=== PATIENT | female | born 1950 | race Caucasian/White ===

== ENCOUNTER 2017-03-08 15:46 | Emergency (ER) | payer MEDICARE ==
[2017-03-08] MEDS: LABETALOL 20 MG/4 ML DISP.SYRIN. IVP (16:11)
[2017-03-08 16:12] LABS: ADD MAN DIFF? NO
[2017-03-08 16:14] LABS: BASO # 0.1 x10^3/uL (0.0-0.2); BASO % 1 % (0-3); EOS % 3 % (0-3); HEMATOCRIT 39.9 % (36.0-47.0); HEMOGLOBIN 13.4 g/dL (12.0-15.5); LYMPH # 3.5 x10^3/uL (1.0-4.8); LYMPH % 34 % (24-48); MEAN CORPUSCULAR HEMOGLOBIN 30 pg (25-35); MEAN CORPUSCULAR HGB CONC 34 g/dL (31-37); MEAN CORPUSCULAR VOLUME 88 fL (79-100); MONO % 7 % (0-9); NEUT % 56 % (31-73); PLATELET COUNT 329 x10^3/uL (140-400); RED BLOOD COUNT 4.54 x10^6/uL (3.50-5.40); RED CELL DISTRIBUTION WIDTH 13.4 % (11.5-14.5); WHITE BLOOD COUNT 10.3 x10^3/uL (4.0-11.0)
[2017-03-08 16:29] LABS: ANION GAP 13 (6-14); BLOOD UREA NITROGEN 23 mg/dL (7-20); BUN/CREATININE RATIO 21 (6-20); CALCIUM 9.1 mg/dL (8.5-10.1); CARBON DIOXIDE 24 mmol/L (21-32); CHLORIDE 104 mmol/L (98-107); CREATININE 1.1 mg/dL (0.6-1.0); GLUCOSE 100 mg/dL (70-99); SODIUM 141 mmol/L (136-145)
[2017-03-08 16:36] LABS: ALBUMIN 3.8 g/dL (3.4-5.0); ALBUMIN/GLOBULIN RATIO 0.9 (1.0-1.7); ALK PHOS 108 U/L (46-116); ALT (SGPT) 25 U/L (14-59); AST (SGOT) 22 U/L (15-37); TOTAL BILIRUBIN 0.3 mg/dL (0.2-1.0); TOTAL PROTEIN 7.9 g/dL (6.4-8.2)
[2017-03-08 16:38] LABS: TROPONINI < 0.017 ng/mL (0.000-0.055)
== END 2017-03-08 17:02 | disposition home or self-care (01) ==
LOC: ER 15:46
DX: I16.0 Hypertensive urgency (principal); R06.00 Dyspnea, unspecified; R07.89 Other chest pain; I11.0 Hypertensive heart disease with heart failure; I50.30 Unspecified diastolic (congestive) heart failure; E78.00 Pure hypercholesterolemia, unspecified; F41.9 Anxiety disorder, unspecified; F32.9 Major depressive disorder, single episode, unspecified; J44.9 Chronic obstructive pulmonary disease, unspecified; Z88.1 Allergy status to other antibiotic agents
CPT/HCPCS: 36415; 71010; 80053; 84484; 85025; 93005; 96374; 99285-25; J3490

== ENCOUNTER → 2018-04-01 | Outpatient (CLI) | payer MEDICARE ==
[2017-03-08 16:45] VITALS: BP 161/69
[~2018-04-01] MED LIST: ALBU0.63 NEB; ALBU8.5H6 INH; AMOX1TAB61 PO; ASPI-612 PO; ATOR10TA60 PO; BUDE0.25 NEB; CLON0.5T PO; CLON1TAB11 PO; DOCU-109 PO; FENT1PAT21 TD; FEXO180T81 PO; FORM20VI IH; IBUP-1060 PO; IBUP200T77 PO; LAMO200T3 PO; LISI-130 PO; LISI10TA2 PO; METO-239 PO; METO25TA4 PO; MUPI1OIN NS; OXYC1TAB19 PO; ROFL500T7 PO
--- NOTE | 2018-04-01 16:22 | KCIC ---
Indications: Left foot and ankle pain for several months with swelling. Three-view left foot study: No acute fracture or dislocation or osteolytic process is seen. No plantar spur of the calcaneus is seen. Three-view left ankle study: No acute fracture or dislocation or osteolytic process is evident. The mortise ankle joint is intact. No significant mortise ankle joint effusion is seen. IMPRESSION: No acute fracture. 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 Electronically signed by: Francisco Olsmtead MD (04/01/2018 4:18 PM) [facility]
== END | disposition home or self-care (01) ==
LOC: KCIC 10:43
PROVIDERS: ATTEND Family Medicine
DX: M19.072 Primary osteoarthritis, left ankle and foot (principal)
CPT/HCPCS: 73610; 73630

== ENCOUNTER → 2018-12-16 | Outpatient (CLI) | payer MEDICARE ==
[2017-03-08 16:45] VITALS: BP 161/69
[~2018-12-16] MED LIST changes: -CLON1TAB11 PO; +CLONAZEPAM1 MG PO; +REGADENOSON 0.4 MG/5 ML DISP.SYRIN. IV ONE
--- NOTE | 2018-12-16 10:47 | CARD ---
MR#: [id number] Date of Study: 12/16/2018 Ordering Physician: FELIX CELAYA, Referring Physician: FELIX CELAYA, Tech: [facility] APPROVED REPORT EXAM: Two-dimensional and M-mode echocardiogram with Doppler and color Doppler. Other Information Quality : Good INDICATION Dyspnea 2D DIMENSIONS RVDd2.8 (2.9-3.5cm)Left Atrium(2D)3.5 (1.6-4.0cm) IVSd1.1 (0.7-1.1cm)Aortic Root(2D)2.8 (2.0-3.7cm) LVDd4.4 (3.9-5.9cm)LVOT Diameter2.0 (1.8-2.4cm) PWd0.9 (0.7-1.1cm)LVDs2.8 (2.5-4.0cm) FS (%) 30.0 %SV59.7 ml LVEF(%)60.0 (>50%) Aortic Valve AoV Peak Ortiz.161.9cm/sAoV VTI26.1cm AO Peak GR.10.5mmHgLVOT Peak Ortiz.141.0cm/s AO Mean GR.4mmHgAVA (VMAX)2.61cm2 TATIANA (VTI)2.09vs1BN P 1/2 Xiai666yb Mitral Valve MV E Jrcnhvph53.6cm/sMV DECEL DSOP371hx MV A Cdyguklg02.7cm/sE/A Ratio0.9 Tricuspid Valve TR P. Yadqxpse328io/sRAP BEGYGMTF0gnSw TR Peak Gr.06fgSlMOSM87rhQm Pulmonary Vein S1 Dyzocden81.7cm/sD2 Lgarhgqw70.8cm/s LEFT VENTRICLE The left ventricle is normal size. There is normal left ventricular wall thickness. The left ventricu lar systolic function is normal. The Ejection Fraction is 55-60%. There is normal LV segmental wall m otion. Transmitral Doppler flow pattern is Grade I-abnormal relaxation pattern. RIGHT VENTRICLE The right ventricle is normal size. The right ventricular systolic function is normal. ATRIA The left atrium size is normal. The right atrium size is normal. The interatrial septum is intact wit h no evidence for an atrial septal defect or patent foramen ovale as noted on 2-D or Doppler imaging. AORTIC VALVE The aortic valve is calcified but opens well. Doppler and Color Flow revealed mild to moderate aortic regurgitation. There is no significant aortic valvular stenosis. MITRAL VALVE The mitral valve is calcified but opens well. Mitral annular calcification is mild. There is no evide nce of mitral valve prolapse. There is no mitral valve stenosis. Doppler and Color Flow revealed no m itral valve regurgitation noted. TRICUSPID VALVE The tricuspid valve is normal in structure and function. Doppler and Color Flow revealed trace to mil d tricuspid regurgitation. There is mild-moderate pulmonary hypertension. The PA pressure was estimat ed at 40 mmHg. There is no tricuspid valve stenosis. PULMONIC VALVE The pulmonic valve is not well visualized. Doppler and Color Flow revealed trace to mild pulmonic ann-marie vular regurgitation. There is no pulmonic valvular stenosis. GREAT VESSELS The aortic root is normal in size. The ascending aorta is normal in size. The IVC is normal in size a nd collapses >50% with inspiration. PERICARDIAL EFFUSION There is no evidence of significant pericardial effusion. Critical Notification Critical Value: No <Conclusion> The left ventricular systolic function is normal. The Ejection Fraction is 55-60%. There is normal LV segmental wall motion. Transmitral Doppler flow pattern is Grade I-abnormal relaxation pattern. Mild to moderate aortic regurgitation. Trace to mild tricuspid regurgitation. The PA pressure was estimated at 40 mmHg. There is no evidence of significant pericardial effusion. Signed by : Paul Oviedo, Electronically Approved : 12/16/2018 10:47:23
--- NOTE | 2018-12-16 12:36 | RAD ---
MR#: [id number] Date of Study: 12/16/2018 Ordering Physician: VANDANA COLVIN Referring Physician: PAZ HARRIS Tech: APPROVED REPORT Test Type: Pharmacological Stress Nurse/Tech: Josh CHING Test Indications: Dyspnea Cardiac History: HTN, Implanted Heart Monitor, See EMR. Medications: ASA 81mg QD, See EMR. Medical History: COPD, X-Smoker quit 6 yrs ago, See EMR. Resting ECG: SR Resting Heart Rate: 78 bpm Resting Blood Pressure: 154/63mmHg Pretest Chest Pain: No chest pain Nurse/Tech Notes Lungs diminished throughout. Heart tones regular. Consent: The procedure was explained to the patient in lay terms. Informed consent was witnessed. Fred eout was entered into [employer]. History and Stress Test performed by [facility]YL[facility]. Details Pharmacologic stress testing was performed using 0.4mg per 5ml of regadenoson given intravenously ove r 7-10 seconds. Stress Symptoms Dyspnea POST EXERCISE Reason for Termination: Infusion complete Max HR: 109 bpm Max Blood Pressure: 156/59mmHg Blood Pressure response to exercise: Normal blood pressure response during stress. Heart Rate response to exercise: WNL Chest Pain: No. Arrhythmia: No. ST Change: No. INTERPRETATION Stress EKG Conclusion: Baseline EKG showed sinus rhythm. No ischemic changes at peak stress. No arr hythmias. Study quality was good. Left Ventricular size was Normal at Rest and Stress. Lung uptake was . Left Ventricular ejection fraction is 86%. The rest and stress images show normal perfusion, normal contraction and thickening. Conclusion 1. Regadenoson cardioisotope stress test did not show any evidence of ischemia or infarct. 2. Normal left ventricular systolic function with ejection fraction calculated at 86%. 3. Low risk for cardiac events. Signed by : Ronit Harrisally Approved : 12/16/2018 12:35:54
== END | disposition home or self-care (01) ==
LOC: NM 08:41
PROVIDERS: ATTEND Internal Medicine Cardiovascular Disease
DX: I08.8 Other rheumatic multiple valve diseases (principal); J44.9 Chronic obstructive pulmonary disease, unspecified; I27.20 Pulmonary hypertension, unspecified; I10 Essential (primary) hypertension; Z87.891 Personal history of nicotine dependence
CPT/HCPCS: 78452; 93017; 93306; A9500; J2785

== ENCOUNTER 2020-01-22 08:54 | Observation (INO) | payer MEDICARE ==
[~2020-01-22] VITALS: Ht 162.6 cm; Wt 90.3 kg
[~2020-01-22 08:54] MED LIST changes: -ASPI-612 PO; +ASPI-886 PO; -REGADENOSON 0.4 MG/5 ML DISP.SYRIN. IV ONE
--- NOTE | 2020-01-22 10:24 | RAD ---
EXAM: 2 views left shoulder AP and lateral views left humerus AP and lateral views left elbow DATE: 01/22/2020 9:52 AM INDICATION: Reason: L upper arm pain / Spl. Instructions: / History: COMPARISON: No Prior FINDINGS/ IMPRESSION: Oblique fracture through the proximal left humeral shaft in mild apex medial and anterior angulation. No definite proximal shoulder fracture. AC joint is congruent. On these nonstandard views of the left elbow, no discrete left elbow fracture. Olecranon enthesopathy. Electronically signed by: Andrea Youssef MD (01/22/2020 10:22 AM) [facility]
--- NOTE | 2020-01-22 10:25 | RAD ---
EXAM: AP View of the chest DATE: 01/22/2020 10:08 AM INDICATION: Reason: pre op / Spl. Instructions: / History: COMPARISON: No Prior FINDINGS: The heart is not enlarged. Mediastinal and hilar contours are normal. No focal parenchymal airspace opacity. Calcified granuloma right upper lung. No pleural effusion or pneumothorax. Metallic device projects over the heart, possibly within or overlying the chest IMPRESSION: 1. No radiographic evidence for acute cardiopulmonary process. Electronically signed by: Andrea Youssef MD (01/22/2020 10:23 AM) [facility]
[2020-01-22] MEDS ORDERED: oxyCODONE/APAP 5/325 1 TAB TABLET PO ONE (11:45)
[2020-01-22] MEDS ORDERED: ONDANSETRON ODT 4 MG TAB.RAPDIS. PO ONE (12:00)
--- NOTE | 2020-01-22 12:16 | PDOC1 ---
History and Physical Date of Admission Date of Admission DATE: 01/22/20 TIME: 12:14 Identification/Chief Complaint Chief Complaint accidental fall at home c/o ACUTE LEFT ARM PAIN, TRIPPED ON A CORD, due to hx severe arthritis, unable to safely ambulate IN ER Past Medical History Past Medical History PAST MEDICAL HISTORY: Anxiety, COPD, depression, diastolic heart failure, tonsillectomy. Past Medical History * Anxiety * Arthritis * CHF * COPD * Depression * High Cholesterol * Hypertension * Other ALLERGIES: CEPHALEXIN. FAMILY HISTORY: Coronary artery disease in her father. SOCIAL HISTORY: She quit smoking 9 years ago. No drinking or drugs. MEDICATIONS: Reviewed. Cardiovascular: CHF, Syncope Pulmonary: Asthma, COPD, Pneumonia, Other CENTRAL NERVOUS SYSTEM: Other GI: Constipation Psych: Anxiety, Depression Musculoskeletal: low back pain, Osteoarthritis, Other Rheumatologic: No pertinent hx Infectious disease: No pertinent hx Renal/: No pertinent hx Endocrine: No pertinent hx Past Surgical History Past Surgical History: Cataract Removal, Tonsillectomy, Other Family History Family History: Hypertension Social History Smoke: No ALCOHOL: none Drugs: None Current Medications Current Medications Current Medications Oxycodone/ Acetaminophen (Percocet 5/325) 1 tab 1X ONCE PO Last administered on 01/22/20at 11:24; Start 01/22/20 at 11:45; Stop 01/22/20 at 11:46; Status DC Ondansetron HCl (Zofran Odt) 4 mg 1X ONCE PO Last administered on 01/22/20at 11:42; Start 01/22/20 at 12:00; Stop 01/22/20 at 12:01; Status DC Active Scripts Active Aspirin Ec (Aspirin) 81 Mg Tablet.dr 81 Mg PO DAILYWBKFT Lisinopril 40 Mg Tablet 40 Mg PO DAILY Metoprolol Succinate ( Xl ) (Metoprolol Succinate) 25 Mg Tab.er.24h 25 Mg PO DAILY Reported Atorvastatin Calcium 10 Mg Tablet 1 Tab PO DAILY Silke Allergy (Fexofenadine Hcl) 180 Mg Tablet 1 Tab PO DAILY PRN Clonazepam 1 Mg Tablet 1 Mg PO QID Lamictal (Lamotrigine) 200 Mg Tablet 1 Tab PO DAILY Albuterol Sulfate Hfa Inhaler (Albuterol Sulfate) 8.5 Gm Hfa.aer.ad 2 Puff INH PRN Q4HRS PRN Allergies Allergies: Coded Allergies: cephalexin (Verified Allergy, Intermediate, hives, 12/06/16) ROS General: No: Chills, Night Sweats, Fatigue, Malaise, Appetite, Other PSYCHOLOGICAL ROS: YES: Anxiety, Depression; No: Behavioral Disorder, Concentration difficultie, Decreased libido, Disorientation, Hallucinations, Hostility, Irritablity, Memory difficulties, Mood Swings, Obsessive thoughts, Physical abuse, Sexual abuse, Sleep disturbances, Suicidal ideation, Other Eyes: No Blurry vision, No Decreased vision, No Double vision, No Dry eyes, No Excessive tearing, No Eye Pain, No Itchy Eyes, No Loss of vision, No Photophobia, No Scotomata, No Uses contacts, No Uses glasses, No Other HEENT: No: Heacaches, Visual Changes, Hearing change, Nasal congestion, Nasal discharge, Oral lesions, Sinus pain, Sore Throat, Epistaxis, Sneezing, Snoring, Tinnitus, Vertigo, Vocal changes, Other ALLERGY AND IMMUNOLOGY: No: Hives, Insect Bite Sensitivity, Itchy/Watery Eyes, Nasal Congestion, Post Nasal Drip, Seasonal Allergies, Other Hematological and Lymphatic: No: Bleeding Problems, Blood Clots, Blood Transfusions, Brusing, Night Sweats, Pallor, Swollen Lymph Nodes, Other ENDOCRINE: No: Breast Changes, Galactorrhea, Hair Pattern Changes, Hot Flashes, Malaise/lethargy, Mood Swings, Palpitations, Polydipsia/polyuria, Skin Changes, Temperature Intolerance, Unexpected Weight Changes, Other Respiratory: No: Cough, Hemoptysis, Orthopnea, Pleuritic Pain, Shortness of breath, SOB with excertion, Sputum Changes, Stridor, Tachypnea, Wheezing, Other Cardiovascular: No Chest Pain, No Palpitations, No Orthopnea, No Paroxysmal Noc. Dyspnea, No Edema, No Lt Headedness, No Other Gastrointestinal: No Nausea, No Vomiting, No Abdominal Pain, No Diarrhea, No Constipation, No Melena, No Hematochezia, No Other Genitourinary: No Dysuria, No Frequency, No Incontinence, No Hematuria, No Retention, No Discharge, No Urgency, No Pain, No Flank Pain, No Other, No , No , No , No , No , No , No Musculoskeletal: Yes Gait Disturbance, Yes Joint Pain, Yes Joint Stiffness, Yes Joint Swelling Neurological: Yes Gait Disturbance, Yes Impaired Coord/balance; No Behavorial Changes, No Bowel/Bladder ControlChng, No Confusion, No Dizziness, No Headaches, No Memory Loss, No Numbness/Tingling, No Seizures, No Speech Problems, No Tremors, No Visual Changes, No Weakness, No Other Skin: No Dry Skin, No Eczema, No Hair Changes, No Lumps, No Mole Changes, No Mottling, No Nail Changes, No Pruritus, No Rash, No Skin Lesion Changes, No Other, No Acne Physical Exam General: Alert, Oriented X3, Cooperative, No acute distress, mild distress HEENT: PERRLA Lungs: Clear to auscultation, Normal air movement Heart: RRR Breasts: Not examined Abdomen: Normal bowel sounds, Soft Rectal Exam: not examined PELVIC: Examination not indicated Neuro: Normal speech, Cranial nerves 3-12 NL Psych/Mental Status: Mental status NL, Mood NL Vitals Vitals Vital Signs Date Time Temp Pulse Resp B/P (MAP) Pulse Ox O2 Delivery O2 Flow Rate FiO2 01/22/20 11:24 16 98 Room Air 01/22/20 09:15 98.3 64 134/64 (87) 98.3 Images Images DPOA REVIEW 19 MIN to patient portal What Is a Power of Service Dismantler? A power of senior sql database developer (POA) is a legal document giving one person (the agent or [id number]) the power to act for another person (the principal). The agent can have broad legal authority or limited authority to make legal decisions about the principal's property, finances or medical care. The power of senior sql database developer is frequently used in the event of a principal's illness or disability, or when the principal can't be present to sign necessary legal documents for financial transactions. A power of senior sql database developer can end for a number of reasons, such as when the principal dies, the principal revokes it, a court invalidates it, the principal divorces their spouse, who happens to be the agent, or the agent can no longer carry out the outlined responsibilities. Conventional POAs lapse when the creator becomes incapacitated, but a durable POA remains in force to enable the agent to manage the creators affairs, and a springing POA comes into effect only if and when the creator of the POA becomes incapacitated. A medical or healthcare POA enables an agent to make medical decisions on behalf of an incapacitated person. Brooks Takeaways A power of senior sql database developer (POA) is a legal document giving one person, the agent or ylqustej-pz-asae the power to act for another person, the principal. The agent can have broad legal authority or limited authority to make decisions about the principal's property, finances or medical care. The power of senior sql database developer is often used when a principal becomes ill or disabled, or when they can't be present to sign necessary legal documents for financial transactions. Understanding Power of Service Dismantler A power of senior sql database developer should be considered when planning for long-term care. There are different types of POAs that fall under either a general power of senior sql database developer or limited power of senior sql database developer. A general power of senior sql database developer acts on behalf of the principal in any and all matters, as allowed by the state. The agent under a general POA agreement may be authorized to take care of issues such as handling bank accounts, signing checks, selling property and assets like stocks, f A limited power of senior sql database developer gives the agent the power to act on behalf of the principal in specific matters or events. For example, the limited POA may explicitly state that the agent is only allowed to manage the principal's [facility] accounts. A limited POA may also be limited to a specific period of time (e.g., if the principal will be out of the country for, say, two years). Most albarran of senior sql database developer documents allow an agent to represent the principal in all property and financial matters as long as the principals mental state of mind is good. If a situation occurs where the principal becomes incapable of making decisions for him or herself, the POA agreement would automatically end. However, someone who wants the POA to remain in effect after the persons health deteriorates would need to sign a durable power of senior sql database developer (DPOA). What is an advance directive? An advance directive is a legal document that says how you want to be cared for if you are unable to make decisions. You can include what medical treatments you would want and who you would trust to make decisions for you. An advance directive can also include other legal documents. A living will is a list of treatment preferences. It can be used to indicate whether you would want cardiopulmonary resuscitation (CPR), tube feedings, a breathing machine, or certain medicines, like antibiotics. The durable power of senior sql database developer for health care document identifies the person you would want to make medical decisions for you. This person is also called a proxy. Your proxy should be familiar with your values and wishes. How do I get started? You can get advance directive documents for your state from your doctor's office or from http://www.caringinfo.org. Review the forms, and ask your doctor if you have any questions. Pick a person to be your proxy, and talk it over with that person. Pulmonary Vein S1 Velocity 65.7cm/s D2 Velocity 50.8cm/s LEFT VENTRICLE The left ventricle is normal size. There is normal left ventricular wall thickness. The left ventricular systolic function is normal. The Ejection Fraction is 55-60%. There is normal LV segmental wall motion. Transmitral Doppler flow pattern is Grade I-abnormal relaxation pattern. RIGHT VENTRICLE The right ventricle is normal size. The right ventricular systolic function is normal. ATRIA The left atrium size is normal. The right atrium size is normal. The interatrial septum is intact with no evidence for an atrial septal defect or patent foramen ovale as noted on 2-D or Doppler imaging. AORTIC VALVE The aortic valve is calcified but opens well. Doppler and Color Flow revealed mild to moderate aortic regurgitation. There is no significant aortic valvular stenosis. MITRAL VALVE The mitral valve is calcified but opens well. Mitral annular calcification is mild. There is no evidence of mitral valve prolapse. There is no mitral valve stenosis. Doppler and Color Flow revealed no mitral valve regurgitation noted. TRICUSPID VALVE The tricuspid valve is normal in structure and function. Doppler and Color Flow revealed trace to mild tricuspid regurgitation. There is mild-moderate pulmonary hypertension. The PA pressure was estimated at 40 mmHg. There is no tricuspid valve stenosis. PULMONIC VALVE The pulmonic valve is not well visualized. Doppler and Color Flow revealed trace to mild pulmonic valvular regurgitation. There is no pulmonic valvular stenosis. GREAT VESSELS The aortic root is normal in size. The ascending aorta is normal in size. The IVC is normal in size and collapses >50% with inspiration. PERICARDIAL EFFUSION There is no evidence of significant pericardial effusion. Critical Notification Critical Value: No <Conclusion> The left ventricular systolic function is normal. The Ejection Fraction is 55-60%. There is normal LV segmental wall motion. Transmitral Doppler flow pattern is Grade I-abnormal relaxation pattern. Mild to moderate aortic regurgitation. Trace to mild tricuspid regurgitation. The PA pressure was estimated at 40 mmHg. There is no evidence of significant pericardial effusion. Signed by : Vandana Colvin, Electronically Approved : 12/16/2018 10:47:23 DICTATED and SIGNED BY: VANDANA COLVIN MD DATE: 12/16/18 1029 PATIENT: MACK POSADA ACCOUNT: [id number] : 1950 LOCATION: ER AGE: 69 SEX: F EXAM STATUS: REG ER ORD. PHYSICIAN: ABIEL MARTINS MD REASON: L upper arm pain PROCEDURE: HUMERUS LEFT EXAM: 2 views left shoulder AP and lateral views left humerus AP and lateral views left elbow DATE: 01/22/2020 9:52 AM INDICATION: Reason: L upper arm pain / Spl. Instructions: / History: COMPARISON: No Prior FINDINGS/ IMPRESSION: Oblique fracture through the proximal left humeral shaft in mild apex medial and anterior angulation. No definite proximal shoulder fracture. AC joint is congruent. On these nonstandard views of the left elbow, no discrete left elbow fracture. Olecranon enthesopathy. Electronically signed by: Andrea Padron MD (01/22/2020 10:22 AM) [facility] DICTATED and SIGNED BY: ANDREA PADRON MD DATE: 01/22/20 1022 VTE Prophylaxis Ordered VTE Prophylaxis Devices: No VTE Pharmacological Prophylaxi: Yes Assessment/Plan Assessment/Plan IMPRESSION: Acute mechanical fall acute Oblique fracture through the proximal left humeral shaft in mild apex medial and anterior angulation. No definite proximal shoulder fracture. Gait instability HX SEVERE OSTEOARTHRITIS HYPERTENSION HYPERLIPIDEMIA plan admit ortho consult bedrest pain control dvt prophylaxis ARM SLING D/W ER Justifications for Admission Other Justification NATO JEFFREY MD Jan 22, 2020 12:16
[2020-01-22] MEDS: IV NORMAL SALINE 1000ML BAG 1,000 ML IV SCH ×2 (12:37→21:03)
[2020-01-22] MEDS ORDERED: SODIUM PHOSPHATES 19/7GM 133 ML ENEMA. PR PRN (12:45)
[2020-01-22] MEDS ORDERED: ALBUTEROL SULFATE 8GM INHALER. INH PRN (12:45)
[2020-01-22] MEDS ORDERED: guaiFENesin ORAL 200 MG/10 ML LIQUID. PO PRN (12:45)
[2020-01-22] MEDS ORDERED: cloNIDine HCL 0.1 MG TABLET PO PRN (12:45)
[2020-01-22] MEDS ORDERED: diphenhydrAMINE 50 MG/ML VIAL IVP PRN (12:45)
[2020-01-22] MEDS ORDERED: ZOLPIDEM 5 MG TABLET. PO PRN (12:45)
[2020-01-22] MEDS ORDERED: ALBUTEROL SULFATE 2.5 MG/3 ML NEBU. NEB PRN (12:45)
[2020-01-22] MEDS ORDERED: ACETAMINOPHEN 325 MG TABLET. PO PRN (12:45)
[2020-01-22] MEDS ORDERED: LORazepam 0.5 MG TABLET PO PRN (12:45)
[2020-01-22] MEDS ORDERED: DOCUSATE SODIUM 100 MG CAPSULE. PO PRN (12:45)
[2020-01-22] MEDS ORDERED: 0.9 % SODIUM CHLORIDE 10 ML DISP.SYRIN. IV PRN (12:45)
--- NOTE | 2020-01-22 13:15 | ED.ADGEN ---
Past Medical History Past Medical History: Anxiety, Arthritis, CHF, COPD, Depression, High Cho lesterol, Hypertension, Other Additional Past Medical Histor: diastolic heart failure Past Surgical History: Tonsillectomy Additional Past Surgical Histo: Staff infection removal Smoking Status: Never Smoker Alcohol Use: None Drug Use: None General Adult EDM: Chief Complaint: MECHANICAL FALL HPI: HPI: Patient is a 69-year-old female presents to the emergency room complaining of left arm pain after tripping over a cord and falling onto her arm. She denies hitting her head or losing consciousness. She does not have any neck pain. She is having significant shoulder pain that radiates down her arm. She has been able to move her hand and she does not have any decreased sensation in it. She is unable to move anything above her wrist. She denies other injuries. Review of Systems: Review of Systems: Complete ROS is negative unless otherwise documented in HPI Current Medications: Current Medications Medications (Trade) Dose Ordered Sig/Silvestre Start Time Stop Time Status Last Admin Dose Admin Ondansetron HCl (Zofran Odt) 4 mg 1X ONCE 01/22/20 12:00 01/22/20 12:01 DC 01/22/20 11:42 4 MG Oxycodone/ Acetaminophen (Percocet 5/325) 1 tab 1X ONCE 01/22/20 11:45 01/22/20 11:46 DC 01/22/20 11:24 1 TAB Allergies: Allergies: Allergies Coded Allergies Type Severity Reaction Last Updated Verified cephalexin Allergy Intermediate hives 12/06/16 Yes Physical Exam: PE: General: Awake, alert, NAD. Well Nourished, well hydrated. Cooperative HEENT: Atraumatic, EOMI, PERRL, airway patent, moist oral mucosa Neck: Supple, trachea midline Respiratory: CTA bilaterally, normal effort, no wheezing/crackles CV: RRR, no murmur, cap refill <2 GI: Soft, nondistended, nontender, no masses MSK: Left upper extremity: Deformity to the left upper arm with swelling and tenderness, intact distal capillary refill, 2+ radial pulse, intact sensation and movement of the hand and wrist Skin: Warm, dry, intact Neuro: A&O x3, speech NL, sensory and motor grossly intact, no focal deficits Psych: Normal affect, normal mood, not suicidal or homicidal Current Patient Data: Vital Signs: Vital Signs Date Time Temp Pulse Resp B/P (MAP) Pulse Ox O2 Delivery O2 Flow Rate FiO2 01/22/20 11:24 16 98 Room Air 01/22/20 09:15 98.3 64 134/64 (87) 98.3 EKG: EKG: [] Heart Score: Risk Factors: Risk Factors: DM, Current or recent (<one month) smoker, HTN, HLP, family history of CAD, obesity. Risk Scores: Score 0 - 3: 2.5% MACE over next 6 weeks - Discharge Home Score 4 - 6: 20.3% MACE over next 6 weeks - Admit for Clinical Observation Score 7 - 10: 72.7% MACE over next 6 weeks - Early Invasive Strategies Radiology/Procedures: Radiology/Procedures: [] Course & Med Decision Making: Course & Med Decision Making Pertinent Labs and Imaging studies reviewed. (See chart for details) Patient is a 69-year-old female who presents to the emergency room complaining of upper arm pain after falling. X-rays were ordered and show a humerus fracture. Discussed the case with Dr. Barber. Patient will need a specialist but which we do not have here in the emergency room. Did place patient in a sling and gave her pain medication. Patient try to get up and move around but it was extremely painful and she was not able to do it. She will be admitted so she may placed in proper splinting and for pain control and PT evaluation. Gennyon Disclaimer: Mar Disclaimer: This electronic medical record was generated, in whole or in part, using a voice recognition dictation system. Departure Departure Impression: Primary Impression: Humeral fracture Disposition: ADMITTED INPT THIS HOSP Condition: STABLE Referrals: ELROY BAUGH MD (PCP) ABIEL MARTINS MD Jan 22, 2020 13:15
[2020-01-22 13:16] LABS: BASO # 0.1 x10^3/uL (0.0-0.2); BASO % 1 % (0-3); EOS % 0 % (0-3); HEMATOCRIT 36.4 % (36.0-47.0); HEMOGLOBIN 12.3 g/dL (12.0-15.5); LYMPH # 1.1 x10^3/uL (1.0-4.8); LYMPH % 8 % (24-48); MEAN CORPUSCULAR HEMOGLOBIN 30 pg (25-35); MEAN CORPUSCULAR HGB CONC 34 g/dL (31-37); MEAN CORPUSCULAR VOLUME 89 fL (79-100); MONO # 0.4 x10^3/uL (0.0-1.1); MONO % 3 % (0-9); NEUT # 12.3 x10^3/uL (1.8-7.7); NEUT % 88 % (31-73); PLATELET COUNT 318 x10^3/uL (140-400); RED BLOOD COUNT 4.09 x10^6/uL (3.50-5.40); RED CELL DISTRIBUTION WIDTH 13.6 % (11.5-14.5); WHITE BLOOD COUNT 13.9 x10^3/uL (4.0-11.0)
[2020-01-22 13:27] LABS: CALCIUM 9.2 mg/dL (8.5-10.1); CREATININE 1.1 mg/dL (0.6-1.0); GFR 49.5
[2020-01-22 13:32] LABS: ALBUMIN 3.5 g/dL (3.4-5.0); ALBUMIN/GLOBULIN RATIO 0.9 (1.0-1.7); TOTAL BILIRUBIN 0.3 mg/dL (0.2-1.0); TOTAL PROTEIN 7.5 g/dL (6.4-8.2)
[2020-01-22 13:40] LABS: % BANDS 1 % (0-9); % LYMPHS 12 % (24-48); % SEGS 87 % (35-66); PLT ESTIMATE ADEQUATE (ADEQUATE)
[2020-01-22] MEDS: clonazePAM 0.5 MG TABLET PO SCH ×3 (15:08→21:00)
[2020-01-22] MEDS: HYDROmorphone 2 MG/ML VIAL IV PRN ×2 (15:09→20:33)
[2020-01-22] MEDS: HYDROcodone/APAP 5/325MG 1 TAB TABLET PO PRN ×2 (18:03→23:28)
[2020-01-22] MEDS: ONDANSETRON PF 4 MG/2 ML VIAL. IV PRN (18:03)
[2020-01-22] MEDS ORDERED: FAMO-63 PO (18:15)
[2020-01-22 19:00] VITALS: BP 141/64
[2020-01-22] MEDS: ATORVASTATIN CALCIUM 10 MG TABLET. PO SCH (20:29)
[2020-01-22] MEDS: ENOXAPARIN 40 MG/0.4 ML SYRINGE. SQ SCH (20:32)
--- NOTE | 2020-01-22 21:01 | NUR ---
klonopin 1mg given at 1800. pt refused 2100 dose.
[2020-01-22 23:00] VITALS: BP 148/70
[2020-01-22] MEDS: MAG HYDROX/ALUMINUM HYD/SIMETH 30 ML ORAL.SUSP PO PRN (23:28)
[2020-01-23] MEDS: HYDROmorphone 2 MG/ML VIAL IV PRN ×2 (01:26→04:38)
[2020-01-23 03:00] VITALS: BP 139/59
[2020-01-23] MEDS: HYDROcodone/APAP 5/325MG 1 TAB TABLET PO PRN ×3 (04:37→19:38)
[2020-01-23] MEDS: ONDANSETRON PF 4 MG/2 ML VIAL. IV PRN ×2 (04:47→08:39)
[2020-01-23] MEDS: IV NORMAL SALINE 1000ML BAG 1,000 ML IV SCH ×2 (04:48→17:06)
[2020-01-23 07:00] VITALS: BP 140/63
--- NOTE | 2020-01-23 07:32 | CONS ---
DATE OF CONSULTATION: 01/23/2020 REQUESTING PHYSICIAN: Isidoro Nielsen MD REASON FOR CONSULTATION: Left humerus fracture. HISTORY OF PRESENT ILLNESS: The patient is a 69-year-old female who was admitted through the Emergency Department with a left humerus fracture that occurred when she tripped over a cord at home and fell onto her left side. She states she did not hit her head, but has severe shoulder pain that is worse with movement, radiates down the arm about the elbow area and hurts with any movement of her elbow as well. PAST MEDICAL HISTORY: Significant for congestive heart failure, COPD, hypertension, arthritis, depression and anxiety. PAST SURGICAL HISTORY: Significant for tonsillectomy and an abscess, treated for Staph infection. FAMILY HISTORY: Noncontributory. ALLERGIES: SHE LISTS AN ALLERGY TO KEFLEX, WHICH GAVE HER HIVES. MEDICATIONS: List is reviewed. SOCIAL HISTORY: Denies smoking, alcohol or drug use. REVIEW OF SYSTEMS: Significant only for the left shoulder and arm pain. She denies any head trauma or loss of consciousness, visual changes, headache, focal weakness, numbness, or tingling. No other extremity injury, neck or back pain, change in bowel or bladder function, recent febrile illness, chest pain, shortness of breath. Review of systems are otherwise negative. PHYSICAL EXAMINATION: She is a pleasant, cooperative 69-year-old female, alert and oriented, in no acute distress, currently in a sling to the left upper extremity. She is tender over the proximal humerus fracture site and has some mild swelling. Shoulder and elbow appear to be grossly stable, but she has a lot of pain with any attempted movement at all. She can move her wrist in all planes with minimal discomfort, only some muscle spasm proximally and likewise can flex and extend her fingers fully. She has normal examination of the contralateral right wrist, elbow, shoulder bilaterally and normal alignment and stability to bilateral hips, knees and ankles with intact motor function, distal pulses, sensation and skin in both upper and lower extremities throughout. IMAGING: X-rays show an oblique fracture of the shaft of the proximal humerus. IMPRESSION: Closed oblique proximal humeral shaft fracture. TREATMENT PLAN: I went over with her that the fracture appears to be in good apposition so far and what I would recommend is nonoperative treatment with a humeral fracture brace to stabilize the arm somewhat and keep the fracture in reasonable alignment. I discussed with her that the bones would move, especially over the first couple of weeks until more callus develops. This can certainly be painful and we would treat with pain medication and I described the ongoing progressive healing process that is expected. Operative intervention could occur if this is severely malaligned or going on not to heal. That said, she really does not have significant risk factors that would delay healing and really does not depend on the upper extremity for ambulation; for example, need of a walker or due to lower extremity weakness or problems, and therefore, I think nonoperative management is certainly preferred. All her questions were answered. I have ordered [facility] to fit her with a humeral fracture brace and she can otherwise have supportive treatment and follow up with me in the Orthopedic Clinic, probably about 10-14 days for repeat examination and planned x-rays. DEWAYNE CAO MD DR: MANDY/yumiko JOB#: [id number] / [id number]
[2020-01-23] MEDS: clonazePAM 0.5 MG TABLET PO SCH ×4 (09:00→21:19)
[2020-01-23] MEDS ORDERED: CETIRIZINE HCL 10 MG TABLET. PO PRN (09:00)
--- NOTE | 2020-01-23 09:40 | NUR ---
SW following. Discussed with RN, pt from home with family, has oxygen at home for night time use, regular diet, COVID-19 negative. Awaiting a brace then pt can work with PT/OT - non operative treatment. RN advised no SW needs, anticipates possible discharge after pt works with therapy. SW will continue to follow.
--- NOTE | 2020-01-23 10:19 | PDOC ---
PROGRESS NOTES Date of Service: DATE: 01/23/20 TIME: 10:18 Chief Complaint Chief Complaint acute left arm humerus fracture acute pain nausea, poor po intake CKD 3, htn anxiety CHF< COPD, 02 HS depression, History of Present Illness History of Present Illness weakness and nausea poor po intake, severe pain, poorly controlled Vitals Vitals Vital Signs Date Time Temp Pulse Resp B/P (MAP) Pulse Ox O2 Delivery O2 Flow Rate FiO2 01/23/20 08:00 Room Air 01/23/20 07:00 97.9 61 16 140/63 (88) 90 97.9 01/23/20 05:37 2.0 Physical Exam General: Alert, Oriented X3, Cooperative, No acute distress, mild distress Heart: Regular rate Lungs: Clear Abdomen: Normal bowel sounds, Soft Labs LABS Laboratory Tests Test 01/22/20 13:09 01/22/20 22:00 White Blood Count 13.9 x10^3/uL (4.0-11.0) Red Blood Count 4.09 x10^6/uL (3.50-5.40) Hemoglobin 12.3 g/dL (12.0-15.5) Hematocrit 36.4 % (36.0-47.0) Mean Corpuscular Volume 89 fL (79-100) Mean Corpuscular Hemoglobin 30 pg (25-35) Mean Corpuscular Hemoglobin Concent 34 g/dL (31-37) Red Cell Distribution Width 13.6 % (11.5-14.5) Platelet Count 318 x10^3/uL (140-400) Neutrophils (%) (Auto) 88 % (31-73) Lymphocytes (%) (Auto) 8 % (24-48) Monocytes (%) (Auto) 3 % (0-9) Eosinophils (%) (Auto) 0 % (0-3) Basophils (%) (Auto) 1 % (0-3) Neutrophils # (Auto) 12.3 x10^3/uL (1.8-7.7) Lymphocytes # (Auto) 1.1 x10^3/uL (1.0-4.8) Monocytes # (Auto) 0.4 x10^3/uL (0.0-1.1) Eosinophils # (Auto) 0.0 x10^3/uL (0.0-0.7) Basophils # (Auto) 0.1 x10^3/uL (0.0-0.2) Segmented Neutrophils % 87 % (35-66) Band Neutrophils % 1 % (0-9) Lymphocytes % 12 % (24-48) Platelet Estimate Adequate (ADEQUATE) Sodium Level 137 mmol/L (136-145) Potassium Level 5.0 mmol/L (3.5-5.1) Chloride Level 104 mmol/L (98-107) Carbon Dioxide Level 26 mmol/L (21-32) Anion Gap 7 (6-14) Blood Urea Nitrogen 25 mg/dL (7-20) Creatinine 1.1 mg/dL (0.6-1.0) Estimated GFR (Cockcroft-Gault) 49.5 BUN/Creatinine Ratio 23 (6-20) Glucose Level 118 mg/dL (70-99) Calcium Level 9.2 mg/dL (8.5-10.1) Total Bilirubin 0.3 mg/dL (0.2-1.0) Aspartate Amino Transf (AST/SGOT) 19 U/L (15-37) Alanine Aminotransferase (ALT/SGPT) 18 U/L (14-59) Alkaline Phosphatase 95 U/L (46-116) Total Protein 7.5 g/dL (6.4-8.2) Albumin 3.5 g/dL (3.4-5.0) Albumin/Globulin Ratio 0.9 (1.0-1.7) SARS-CoV-2 Antigen (Rapid) Negative (NEGATIVE) Review of Systems Review of Systems arm pain nasuea no po intake Comment Review of Relevant I have reviewed the following items wei (where applicable) has been applied. Labs Laboratory Tests Test 01/22/20 13:09 01/22/20 22:00 White Blood Count 13.9 x10^3/uL (4.0-11.0) Red Blood Count 4.09 x10^6/uL (3.50-5.40) Hemoglobin 12.3 g/dL (12.0-15.5) Hematocrit 36.4 % (36.0-47.0) Mean Corpuscular Volume 89 fL (79-100) Mean Corpuscular Hemoglobin 30 pg (25-35) Mean Corpuscular Hemoglobin Concent 34 g/dL (31-37) Red Cell Distribution Width 13.6 % (11.5-14.5) Platelet Count 318 x10^3/uL (140-400) Neutrophils (%) (Auto) 88 % (31-73) Lymphocytes (%) (Auto) 8 % (24-48) Monocytes (%) (Auto) 3 % (0-9) Eosinophils (%) (Auto) 0 % (0-3) Basophils (%) (Auto) 1 % (0-3) Neutrophils # (Auto) 12.3 x10^3/uL (1.8-7.7) Lymphocytes # (Auto) 1.1 x10^3/uL (1.0-4.8) Monocytes # (Auto) 0.4 x10^3/uL (0.0-1.1) Eosinophils # (Auto) 0.0 x10^3/uL (0.0-0.7) Basophils # (Auto) 0.1 x10^3/uL (0.0-0.2) Segmented Neutrophils % 87 % (35-66) Band Neutrophils % 1 % (0-9) Lymphocytes % 12 % (24-48) Platelet Estimate Adequate (ADEQUATE) Sodium Level 137 mmol/L (136-145) Potassium Level 5.0 mmol/L (3.5-5.1) Chloride Level 104 mmol/L (98-107) Carbon Dioxide Level 26 mmol/L (21-32) Anion Gap 7 (6-14) Blood Urea Nitrogen 25 mg/dL (7-20) Creatinine 1.1 mg/dL (0.6-1.0) Estimated GFR (Cockcroft-Gault) 49.5 BUN/Creatinine Ratio 23 (6-20) Glucose Level 118 mg/dL (70-99) Calcium Level 9.2 mg/dL (8.5-10.1) Total Bilirubin 0.3 mg/dL (0.2-1.0) Aspartate Amino Transf (AST/SGOT) 19 U/L (15-37) Alanine Aminotransferase (ALT/SGPT) 18 U/L (14-59) Alkaline Phosphatase 95 U/L (46-116) Total Protein 7.5 g/dL (6.4-8.2) Albumin 3.5 g/dL (3.4-5.0) Albumin/Globulin Ratio 0.9 (1.0-1.7) SARS-CoV-2 Antigen (Rapid) Negative (NEGATIVE) Laboratory Tests Test 01/22/20 13:09 01/22/20 22:00 White Blood Count 13.9 x10^3/uL (4.0-11.0) Red Blood Count 4.09 x10^6/uL (3.50-5.40) Hemoglobin 12.3 g/dL (12.0-15.5) Hematocrit 36.4 % (36.0-47.0) Mean Corpuscular Volume 89 fL (79-100) Mean Corpuscular Hemoglobin 30 pg (25-35) Mean Corpuscular Hemoglobin Concent 34 g/dL (31-37) Red Cell Distribution Width 13.6 % (11.5-14.5) Platelet Count 318 x10^3/uL (140-400) Neutrophils (%) (Auto) 88 % (31-73) Lymphocytes (%) (Auto) 8 % (24-48) Monocytes (%) (Auto) 3 % (0-9) Eosinophils (%) (Auto) 0 % (0-3) Basophils (%) (Auto) 1 % (0-3) Neutrophils # (Auto) 12.3 x10^3/uL (1.8-7.7) Lymphocytes # (Auto) 1.1 x10^3/uL (1.0-4.8) Monocytes # (Auto) 0.4 x10^3/uL (0.0-1.1) Eosinophils # (Auto) 0.0 x10^3/uL (0.0-0.7) Basophils # (Auto) 0.1 x10^3/uL (0.0-0.2) Segmented Neutrophils % 87 % (35-66) Band Neutrophils % 1 % (0-9) Lymphocytes % 12 % (24-48) Platelet Estimate Adequate (ADEQUATE) Sodium Level 137 mmol/L (136-145) Potassium Level 5.0 mmol/L (3.5-5.1) Chloride Level 104 mmol/L (98-107) Carbon Dioxide Level 26 mmol/L (21-32) Anion Gap 7 (6-14) Blood Urea Nitrogen 25 mg/dL (7-20) Creatinine 1.1 mg/dL (0.6-1.0) Estimated GFR (Cockcroft-Gault) 49.5 BUN/Creatinine Ratio 23 (6-20) Glucose Level 118 mg/dL (70-99) Calcium Level 9.2 mg/dL (8.5-10.1) Total Bilirubin 0.3 mg/dL (0.2-1.0) Aspartate Amino Transf (AST/SGOT) 19 U/L (15-37) Alanine Aminotransferase (ALT/SGPT) 18 U/L (14-59) Alkaline Phosphatase 95 U/L (46-116) Total Protein 7.5 g/dL (6.4-8.2) Albumin 3.5 g/dL (3.4-5.0) Albumin/Globulin Ratio 0.9 (1.0-1.7) SARS-CoV-2 Antigen (Rapid) Negative (NEGATIVE) Medications Current Medications Oxycodone/ Acetaminophen (Percocet 5/325) 1 tab 1X ONCE PO Last administered on 01/22/20at 11:24; Start 01/22/20 at 11:45; Stop 01/22/20 at 11:46; Status DC Ondansetron HCl (Zofran Odt) 4 mg 1X ONCE PO Last administered on 01/22/20at 11:42; Start 01/22/20 at 12:00; Stop 01/22/20 at 12:01; Status DC Albuterol Sulfate (Ventolin Hfa) 2 puff PRN Q4HRS PRN INH CONGESTION; Start 01/22/20 at 12:45; Stop 01/22/20 at 12:50; Status DC Aspirin (Ecotrin) 81 mg DAILYWBKFT PO ; Start 01/23/20 at 08:00 Atorvastatin Calcium (Lipitor) 10 mg QHS PO Last administered on 01/22/20at 20:29; Start 01/22/20 at 21:00 Lisinopril (Prinivil) 40 mg DAILY PO ; Start 01/23/20 at 09:00 Metoprolol Succinate (Toprol Xl) 25 mg DAILY PO ; Start 01/23/20 at 09:00 Clonazepam (KlonoPIN) 1 mg QID PO Last administered on 01/22/20at 18:04; Start 01/22/20 at 14:00 Cetirizine HCl (ZyrTEC) 10 mg PRN DAILY PRN PO ALLERGIES; Start 01/23/20 at 09:00 Lamotrigine (LaMICtal) 200 mg DAILY PO ; Start 01/23/20 at 09:00 Sodium Chloride (Normal Saline Flush) 3 ml QSHIFT PRN IV AFTER MEDS AND BLOOD DRAWS; Start 01/22/20 at 12:45 Sodium Chloride 1,000 ml @ 100 mls/hr Q10H IV Last administered on 01/23/20at 04:48; Start 01/22/20 at 12:37 Ondansetron HCl (Zofran) 4 mg PRN Q4HRS PRN IV NAUSEA/VOMITING Last administered on 01/23/20at 08:39; Start 01/22/20 at 12:45 Zolpidem Tartrate (Ambien) 5 mg PRN QHS PRN PO INSOMNIA; Start 01/22/20 at 12:45 Acetaminophen (Tylenol) 650 mg PRN Q4HRS PRN PO TEMP OVER 100.4F OR MILD PAIN; Start 01/22/20 at 12:45 Al Hydroxide/Mg Hydroxide (Mylanta Plus Xs) 30 ml PRN DAILY PRN PO HEARTBURN / GAS Last administered on 01/22/20at 23:28; Start 01/22/20 at 12:45 Clonidine HCl (Catapres) 0.1 mg PRN Q6HRS PRN PO SBP>160 OR DBP>90; Start 01/22/20 at 12:45 Sodium Monofluorophosphate (Fleet Adult) 133 ml PRN DAILY PRN IL CONSTIPATION; Start 01/22/20 at 12:45 Diphenhydramine HCl (Benadryl) 25 mg PRN Q4HRS PRN IVP ITCHING; Start 01/22/20 at 12:45 Docusate Sodium (Colace) 100 mg PRN BID PRN PO HARD STOOLS; Start 01/22/20 at 12:45 Albuterol Sulfate (Ventolin Neb Soln) 2.5 mg PRN Q4HRS PRN NEB SHORTNESS OF BREATH; Start 01/22/20 at 12:45 Guaifenesin (Robitussin) 200 mg PRN Q4HRS PRN PO COUGH; Start 01/22/20 at 12:45 Lorazepam (Ativan) 0.5 mg PRN Q4HRS PRN PO ANXIETY / AGITATION; Start 01/22/20 at 12:45 Hydromorphone HCl (Dilaudid) 0.4 mg PRN Q2HRS PRN IV SEVERE PAIN 7-10 Last admi nistered on 01/23/20at 04:38; Start 01/22/20 at 12:45 Enoxaparin Sodium (Lovenox 40mg Syringe) 40 mg Q24H SQ Last administered on 01/22/20at 20:32; Start 01/22/20 at 21:00 Acetaminophen/ Hydrocodone Bitart (Lortab 5/325) 1 tab PRN Q4HRS PRN PO SEVERE PAIN 7-10 Last administered on 01/23/20at 04:37; Start 01/22/20 at 12:45 Active Scripts Active Aspirin Ec (Aspirin) 81 Mg Tablet.dr 81 Mg PO DAILYWBKFT Lisinopril 40 Mg Tablet 40 Mg PO DAILY Metoprolol Succinate ( Xl ) (Metoprolol Succinate) 25 Mg Tab.er.24h 25 Mg PO DAILY Reported Pepcid (Famotidine) 20 Mg Tablet 20 Mg PO BID Atorvastatin Calcium 10 Mg Tablet 1 Tab PO DAILY Silke Allergy (Fexofenadine Hcl) 180 Mg Tablet 1 Tab PO DAILY PRN Clonazepam 1 Mg Tablet 1 Mg PO QID Lamictal (Lamotrigine) 200 Mg Tablet 1 Tab PO DAILY Albuterol Sulfate Hfa Inhaler (Albuterol Sulfate) 8.5 Gm Hfa.aer.ad 2 Puff INH PRN Q4HRS PRN Vitals/I & O Vital Sign - Last 24 Hours 01/22/20 01/22/20 01/22/20 01/22/20 10:41 11:24 11:41 12:41 Pulse 56 62 61 Resp 16 Pulse Ox 97 98 96 95 O2 Delivery Room Air 01/22/20 01/22/20 01/22/20 01/22/20 13:41 15:09 18:03 19:00 Temp 98.0 98.0 Pulse 62 74 Resp 16 20 18 B/P (MAP) 141/64 (89) Pulse Ox 94 100 90 O2 Delivery Room Air Room Air Room Air 01/22/20 01/22/20 01/22/20 01/22/20 19:03 20:00 20:33 21:03 Resp 20 20 20 Pulse Ox 100 92 O2 Delivery Room Air Room Air Room Air Room Air 01/22/20 01/22/20 01/23/20 01/23/20 23:00 23:28 00:28 01:26 Temp 98.1 98.1 Pulse 68 Resp 16 20 2 20 B/P (MAP) 148/70 (96) Pulse Ox 91 92 92 94 O2 Delivery Room Air Nasal Cannula Nasal Cannula Room Air O2 Flow Rate 2.0 2.0 2.0 01/23/20 01/23/20 01/23/20 01/23/20 01:56 03:00 04:37 04:38 Temp 97.9 97.9 Pulse 60 Resp 20 16 20 20 B/P (MAP) 139/59 (85) Pulse Ox 93 93 93 93 O2 Delivery Room Air Room Air Room Air Room Air O2 Flow Rate 2.0 2.0 2.0 01/23/20 01/23/20 01/23/20 01/23/20 05:08 05:37 07:00 08:00 Temp 97.9 97.9 Pulse 61 Resp 20 20 16 B/P (MAP) 140/63 (88) Pulse Ox 93 93 90 O2 Delivery Room Air Nasal Cannula Room Air Room Air O2 Flow Rate 2.0 2.0 Intake and Output 01/22/20 01/22/20 01/23/20 15:00 23:00 07:00 Intake Total 1200 ml 1000 ml Output Total 350 ml Balance 1200 ml 650 ml Justicifation of Admission Dx: Justifications for Admission: Justification of Admission Dx: RACHEL Reilly MD Jan 23, 2020 10:19
[2020-01-23 11:00] VITALS: BP 150/65
[2020-01-23] MEDS: LISINOPRIL 20 MG TABLET PO SCH (11:37)
[2020-01-23] MEDS: lamoTRIgine 100 MG TABLET. PO SCH (11:37)
[2020-01-23] MEDS: METOPROLOL SUCC 24HR ER 25 MG TAB.ER.24H. PO SCH (11:38)
[2020-01-23] MEDS: ASPIRIN ENTERIC COATED 81 MG TABLET.DR. PO SCH (11:38)
[2020-01-23] MEDS: IBUPROFEN 400 MG TABLET. PO PRN (14:07)
[2020-01-23 15:00] VITALS: BP 160/64
[2020-01-23 19:00] VITALS: BP 137/47
[2020-01-23] MEDS: ATORVASTATIN CALCIUM 10 MG TABLET. PO SCH (21:19)
[2020-01-23] MEDS: ENOXAPARIN 40 MG/0.4 ML SYRINGE. SQ SCH (21:24)
[2020-01-23 21:33] LABS: BILIRUBIN,URINE NEGATIVE (NEG); CLARITY,URINE CLEAR; COLOR,URINE YELLOW; NITRITE,URINE NEGATIVE (NEG); PH,URINE 6.5 (<5.0-8.0); PROTEIN,URINE NEGATIVE (NEG-TRACE); UROBILINOGEN,URINE 0.2 mg/dL (0.2 mg/dL)
[2020-01-23 21:42] LABS: BACTERIA,URINE MOD /HPF (0-FEW)
[2020-01-23 21:43] LABS: RBC,URINE OCC /HPF (0-2)
[2020-01-23 23:00] VITALS: BP 118/49
[2020-01-23] MEDS: MAG HYDROX/ALUMINUM HYD/SIMETH 30 ML ORAL.SUSP PO PRN (23:27)
[2020-01-24 03:00] VITALS: BP 133/53
[2020-01-24] MEDS: IV NORMAL SALINE 1000ML BAG 1,000 ML IV SCH ×2 (04:37→12:59)
[2020-01-24 07:47] VITALS: BP 160/55
[2020-01-24] MEDS: clonazePAM 0.5 MG TABLET PO SCH ×2 (08:27→12:57)
[2020-01-24] MEDS: METOPROLOL SUCC 24HR ER 25 MG TAB.ER.24H. PO SCH (08:27)
[2020-01-24] MEDS: ASPIRIN ENTERIC COATED 81 MG TABLET.DR. PO SCH (08:27)
[2020-01-24] MEDS: lamoTRIgine 100 MG TABLET. PO SCH (08:27)
[2020-01-24] MEDS: HYDROcodone/APAP 5/325MG 1 TAB TABLET PO PRN ×2 (08:28→12:58)
[2020-01-24] MEDS: LISINOPRIL 20 MG TABLET PO SCH (08:28)
[2020-01-24] MEDS: IBUPROFEN 400 MG TABLET. PO PRN (08:29)
--- NOTE | 2020-01-24 09:27 | NUR ---
PINEDA following. Discussed with RN, pt wanting to discharge home, brace was given by Lorna, except it is too small and apparently that is the only size. Lorna advised [facility] might have a different kind of brace, RN working on it. Pt needs a brace per physician instructions/ orders. PINEDA will continue to follow. Addendum: 01/24/20 at 1224 by ANAIS SUNG Pt wanting home health upon discharge. PINEDA met with pt and pt's daughter at bedside (no isolation precautions at the time). Pt does not have a preference of provider, completed choice of vendor form. [facility] is in network with pt's insurance - PINEDA phoned and faxed referral to [facility], awaiting acceptance decision. PINEDA will continue to follow. Addendum: 01/24/20 at 1423 by ANAIS SUNG Pt accepted with [facility], they will see pt on (01/26/2020). RN notified. Pt likely discharging home today.
[2020-01-24 10:33] VITALS: BP 160/55
[2020-01-24] MEDS ORDERED: HYDR-2761 PO (11:19)
[2020-01-24] MEDS ORDERED: DOCU-153 PO (11:19)
--- NOTE | 2020-01-24 11:20 | SNU/HH DC ---
DISCHARGE WITH HOME HEALTH DISCHARGE INFORMATION: Discharge Date: Jan 24, 2020 Final Diagnosis: humerus fracture nausea weakness anxiety COPD obese, Bmi 34 Condition on Discharge: Stable HOME HEALTH: Face to Face: I certify this patient is under my care and that I had a face to face encounter that meets the physician face to face encounter requirements with this patient on 01/23 Medical Complications: Falls, Other (arm fracture) Mcfp For: Assess & Educate Safety RN For Eval/Treatment: Yes Physical Therapy For: Evalulation/Treatment Occupational Therapy For: Evaluation/Treatment Pt Meets Homebound Status: Unsteady balance w/ amb,, Extreme weakness w/ amb. POST DISCHARGE ORDERS: Activity Instructions for Disc: Activity as tolerated Weight Bearing Status after Di: As tolerated CHECKS AFTER DISCHARGE: Checks after discharge: Check blood press - daily, Check your Temp as needed, Weigh Yourself Daily FOLLOW-UP: Follow up with: ortho 2 weeks TREATMENT/EQUIPMENT ORDERS: Adaptive Equipment Issued: None CERTIFICATION STATEMENT: Certification Statement: Certification Statement: Based on the above finding, I certify that this patient is confined to the home and needs intermittent prison care, physical therapy and/or speech therapy, or continues to need occupational therapy.~ This patient is under my care, and I have initiated the establishment of the plan of care.~ This patient will be followed by myself or a community physician who will periodically review the plan of care. Home Meds Active Scripts Aspirin (ASPIRIN EC) 81 Mg Tablet.dr, 81 MG PO DAILYWBKFT, #90 TAB.SR Prov:RACHEL SAENZ MD 12/06/16 Lisinopril (LISINOPRIL) 40 Mg Tablet, 40 MG PO DAILY, #30 TAB 1 Refill Prov:RACHEL SAENZ MD 12/06/16 Metoprolol Succinate (METOPROLOL SUCCINATE ( XL )) 25 Mg Tab.er.24h, 25 MG PO DAILY, #30 TAB.SR 1 Refill Prov:RACHEL SAENZ MD 12/06/16 Reported Medications Famotidine (PEPCID) 20 Mg Tablet, 20 MG PO BID for GERD, TAB 01/22/20 Atorvastatin Calcium (ATORVASTATIN CALCIUM) 10 Mg Tablet, 1 TAB PO DAILY, #30 TAB 5 Refills 12/05/16 Fexofenadine Hcl (MARY ALLERGY) 180 Mg Tablet, 1 TAB PO DAILY PRN for ALLERGIES, #30 TAB 2 Refills 12/05/16 Clonazepam (CLONAZEPAM) 1 Mg Tablet, 1 MG PO QID for ANXIETY / AGITATION, TAB 12/05/16 Lamotrigine (LAMICTAL) 200 Mg Tablet, 1 TAB PO DAILY, #30 TAB 1 Refill 11/16/13 Albuterol Sulfate (ALBUTEROL SULFATE HFA INHALER) 8.5 Gm Hfa.aer.ad, 2 PUFF INH PRN Q4HRS PRN for CONGESTION, INHALER 0 Refills 09/30/13 RACHEL SAENZ MD Jan 24, 2020 11:20
[2020-01-24 14:28] VITALS: BP 172/57
--- NOTE | 2020-01-24 15:32 | NUR ---
PT DISCHARGED HOME WITH HOME HEALTH. DISCHARGE INSTRUCTIONS AND PRESCRIPTIONS DISCUSSED WITH PT AND DAUGHTER. DENIED QUESTIONS. IV REMOVED. PT ASSISTED TO WHEELCHAIR AND WAS SECURED IN CAR WITH DAUGHTER.
== END 2020-01-24 15:37 | disposition home health service (06) ==
LOC: ER 08:54 → ED HOLD 12:02 → 4 NORTH 17:07
PROVIDERS: ADMIT Family Medicine; ATTEND Family Medicine
DX: S42.332A Displaced oblique fracture of shaft of humerus, left arm, initial encounter for closed fracture (principal); Z20.828 Contact with and (suspected) exposure to other viral communicable diseases; I11.0 Hypertensive heart disease with heart failure; I50.32 Chronic diastolic (congestive) heart failure; I35.1 Nonrheumatic aortic (valve) insufficiency; J44.9 Chronic obstructive pulmonary disease, unspecified; M19.90 Unspecified osteoarthritis, unspecified site; F41.9 Anxiety disorder, unspecified; E78.00 Pure hypercholesterolemia, unspecified; F32.9 Major depressive disorder, single episode, unspecified; E78.5 Hyperlipidemia, unspecified; R55 Syncope and collapse; E66.9 Obesity, unspecified; J18.9 Pneumonia, unspecified organism; Z87.891 Personal history of nicotine dependence; Z90.49 Acquired absence of other specified parts of digestive tract; Z79.82 Long term (current) use of aspirin; Z68.34 Body mass index [BMI] 34.0-34.9, adult; Z98.49 Cataract extraction status, unspecified eye; W01.0XXA Fall on same level from slipping, tripping and stumbling without subsequent striking against object, initial encounter; Y93.89 Activity, other specified; Y92.009 Unspecified place in unspecified non-institutional (private) residence as the place of occurrence of the external cause; Y99.8 Other external cause status
CPT/HCPCS: 36415; 71045; 73030; 73060; 73080; 80053; 81001; 82962; 85007; 85025; 87426; 96361; 96372; 96374; 96375; 96376; 97110; 97116; 97162; 97166; 97535; 99284; G0378; J1170; J1650; J2405; J7030; U0003; G0379

== ENCOUNTER 2020-02-07 10:48 | Day surgery (SDC) | payer MEDICARE ==
[~2020-02-07] VITALS: Ht 161.9 cm; Wt 88.0 kg
[~2020-02-07 10:48] MED LIST changes: +AMLO-187 PO; +BUDE0.25 IH; +CLINDAMYCIN 900MG PREMIX 50 ML IV PRN; +DOCU-153 PO; +FAMO-63 PO; +FLUT9.9S NS; +HYDR-2761 PO; +HYDR-2769 PO; +HYDROmorphone 2 MG/ML VIAL IV PRN; +IV RINGERS,LACTATED 1000ML 1,000 ML IV SCH; +LIDOCAINE 1% PF 2 ML VIAL. ID PRN; +ONDANSETRON PF 4 MG/2 ML VIAL. IV PRN; +PROCHLORPERAZINE 10 MG/2 ML VIAL. IV PRN; +fentaNYL PF VIAL 100 MCG/2 ML VIAL IV PRN
[2020-02-07] MEDS ORDERED: SCOPOLAMINE 1.5MG PATCH. TD ONE (11:45)
[2020-02-07] MEDS ORDERED: fentaNYL PF VIAL 100 MCG/2 ML VIAL ONE ×3 (14:29→17:46)
[2020-02-07] MEDS ORDERED: MIDAZOLAM HCL/PF 2 MG/2 ML VIAL. ONE (14:29)
[2020-02-07] MEDS ORDERED: DEXAMETHASONE SOD PHOS 4 MG/ML VIAL ONE (14:30)
[2020-02-07] MEDS ORDERED: LIDOCAINE 2% PF 5 ML VIAL. ONE (14:30)
[2020-02-07] MEDS ORDERED: ONDANSETRON PF 4 MG/2 ML VIAL. ONE (14:30)
[2020-02-07] MEDS ORDERED: PROPOFOL 10 MG/ML (20ML) VIAL. IV ONE (14:30)
[2020-02-07] MEDS ORDERED: ROCURONIUM 50 MG/5 ML VIAL. ONE (15:04)
[2020-02-07] MEDS ORDERED: PHENYLEPHRINE 10 MG/ML VIAL. ONE (15:53)
[2020-02-07] MEDS ORDERED: NEOSTIGMINE METHYLSULFATE 5 MG/5 ML SYRINGE. ONE (17:04)
[2020-02-07] MEDS ORDERED: GLYCOPYRROLATE 1 MG/5 ML VIAL. ONE (17:04)
[2020-02-07] MEDS ORDERED: SEVOFLURANE 61 TO 120 MINUTES. IH ONE (17:05)
[2020-02-07] MEDS ORDERED: BUPIVACAINE-EPI 0.5%-1:200000 MPF 30 ML VIAL. INJ ONE (17:05)
[2020-02-07] MEDS: fentaNYL PF VIAL 100 MCG/2 ML VIAL IV PRN ×2 (17:47→18:12)
[2020-02-07] MEDS ORDERED: IPRATRPIUM/ALBUTEROL 0.5/2.5MG 3 ML NEBU. NEB ONE (18:30)
[2020-02-07] MEDS ORDERED: HYDROcodone/APAP 10/325 1 TAB TABLET PO ONE (18:30)
[2020-02-07] MEDS ORDERED: MORPHINE SULFATE 2 MG/ML VIAL. ONE (18:54)
[2020-02-07] MEDS: MORPHINE SULFATE 2 MG/ML VIAL. IV PRN ×2 (18:58→19:12)
[2020-02-07 19:05] VITALS: BP 140/66
--- NOTE | 2020-02-07 19:46 | DISCH ---
DISCHARGE INSTRUCTIONS Condition on Discharge Condition on Discharge: Stable Activity After Discharge Activity Instructions for Disc: Other, see below (May use left arm for fine motor use such as gentle reaching grasping eating writing typing, no heavy lifting pushing or pulling or pushing up to transfer out of bed or chair) Lifting Instructions after Dis: No heavy lifting, No pulling or pushing Exercise Instruction after Dis: Progress as tolerated Driving Instructions after Dis: Do not drive Weight Bearing Status after Di: Non weight bearing Diet after Discharge Diet after Discharge: Regular Diet Texture: Regular Liquid Texture: Thin Liquid Swallowing Supervision: None needed Wound Incision Care Wound/Incision Care: Change dressing (Must cover dressing or keep dry and shower, may remove dressing in 4 days, then report any ongoing drainage redness), Other, see below (Bruising of the arm is normal and bleeding will go down the arm even into the forearm with gravity and cause some bruising in that area) Contacting the [facility] after DC Call your doctor for: Concerns you may have Follow-Up Follow up with: Dr. Barber 10 to 14 days Treatment/Equipment after DC Adaptive Equipment Issued: None DEWAYNE BARBER MD Feb 07, 2020 19:46
--- NOTE | 2020-02-07 20:04 | PDOC4 ---
Operative Note Operative Note Date of surgery: 02/07/2020 Preoperative diagnosis: Oblique left proximal humeral shaft fracture Postoperative diagnosis: Same Operative procedure: Operative reduction internal fixation left proximal humeral shaft fracture Surgeon: Elisabeth Anesthesia: General Estimated blood loss: 100 cc Complications: None Operative indications: Patient is a 69-year-old female that was initially treated nonoperatively for an oblique left proximal humeral shaft fracture. When she was seen back in clinic, she was having a lot of trouble with pain control and really unable to find a comfortable position. Originally a humeral fracture brace was contemplated for her but did not adequately fit and she was treated in an immobilizer. I had gone over with her the possibility of additional nonoperative management versus operative reduction fixation along with the risks of open management including possible infection nerve or blood vessel damage possibility of nonhealing hardware breakage medical or other anesthetic complications and covered with her that this would not help the fracture heal faster but only to stabilize the fracture while it does heal. All her questions were answered she wishes to proceed with surgical evaluation and treatment. Operative text: Patient was identified procedure verified patient placed in the supine position on the operating table. After adequate amounts of general anesthesia were administered she was placed in the beachchair position with the T-Max headrest and all bony prominences well-padded. The left upper extremity was then prepped and draped in standard sterile fashion and after timeout was performed patient procedure identified and verified, an incision was made taking advantage of a deltopectoral approach superiorly and extending down the humeral shaft just lateral to the bicipital groove. The deltoid insertion was bluntly elevated and hematoma cleared from the fracture edges where a anatomic reduction was obtained using a reduction forcep. A Latosha 6-hole large fragment nonlocking plate was contoured appropriately and fixated distally and proximally to the fracture. 6 cortices of good fixation were obtained proximally and distally and hardware placement and fracture reduction were checked under multiple fluoroscopic views. Thorough irrigation was then carried out normal saline solution, closure accomplished with deep Vicryl in the fascia layered in the subcutaneous layer and skin closure with maurilio. Sterile dressings were applied patient was placed in a sling and returned to recovery room in stable condition having tolerated procedure well DEWAYNE CAO MD Feb 07, 2020 20:04
== END 2020-02-07 20:20 | disposition home or self-care (01) ==
LOC: SURG 10:48
PROVIDERS: ATTEND Orthopaedic Surgery
DX: S42.332A Displaced oblique fracture of shaft of humerus, left arm, initial encounter for closed fracture (principal); I11.0 Hypertensive heart disease with heart failure; I50.9 Heart failure, unspecified; E78.00 Pure hypercholesterolemia, unspecified; K21.9 Gastro-esophageal reflux disease without esophagitis; M19.90 Unspecified osteoarthritis, unspecified site; E66.9 Obesity, unspecified; F41.9 Anxiety disorder, unspecified; F32.9 Major depressive disorder, single episode, unspecified; J43.9 Emphysema, unspecified; Z20.828 Contact with and (suspected) exposure to other viral communicable diseases; Z79.82 Long term (current) use of aspirin; Z79.899 Other long term (current) drug therapy; Z98.890 Other specified postprocedural states; Z87.891 Personal history of nicotine dependence; Z88.1 Allergy status to other antibiotic agents; Z82.49 Family history of ischemic heart disease and other diseases of the circulatory system; Z68.33 Body mass index [BMI] 33.0-33.9, adult
CPT/HCPCS: 24515; 87426; A4565; C1713; C9803; J1100; J2250; J2270; J2370; J2405; J2704; J2710; J3010; J3490; U0003; 76000